=== PATIENT | female | born 1980 | race Caucasian/White ===

== ENCOUNTER 2017-04-29 15:11 | Emergency (ER) | payer MEDICAID, OTHER ==
[~2017-04-29] VITALS: Ht 157.5 cm; Wt 61.5 kg
[2017-04-29 15:15] VITALS: Ht 157.5 cm; Wt 61.5 kg
[2017-04-29] MEDS ORDERED: AMOX1TAB10 PO (16:39)
--- NOTE | 2017-04-29 16:48 | ERD ---
ER Documentation Chief Complaint Date/Time DATE: 04/29/17 TIME: 16:47 Chief Complaint Complains of a dog bite to right thigh HPI This 36-year-old female was bit by a dog that she states was her neighbors after she greeted them at the neighbor's door. She has not an abrasion on her left upper thigh. She has restricted range of motion, weakness, fevers. Her tetanus is not up-to-date. ROS All systems reviewed and are negative except as per history of present illness. Medications Home Meds Active Scripts Amoxicillin/Potassium Clav (Amox-Clav 875-125 mg Tablet) 875-125 mg Tab, 1 TAB PO BID for 7 Days, #14 TAB Prov:ROSAURA PANIAGUA MD 04/29/17 Allergies Allergies: Coded Allergies: No Known Allergy (Unverified , 04/29/17) PMhx/Soc Medical and Surgical Hx: pt denies Medical Hx, pt denies Surgical Hx History of Surgery: No Anesthesia Reaction: No Hx Neurological Disorder: No Hx Respiratory Disorders: No Hx Cardiac Disorders: No Hx Psychiatric Problems: No Hx Miscellaneous Medical Probl: No Hx Alcohol Use: No Hx Substance Use: No Hx Tobacco Use: No Smoking Status: Never smoker Physical Exam Vitals Vital Signs Date Time Temp Pulse Resp B/P Pulse Ox O2 Delivery O2 Flow Rate FiO2 04/29/17 15:15 98.3 86 20 135/65 98 Physical Exam Const: []Alert, [id number] Head: Atraumatic Eyes: Normal Conjunctiva ENT: Normal External Ears, Nose and Mouth. Neck: Full range of motion..~ No meningismus. Resp: Clear to auscultation bilaterally Cardio: Regular rate and rhythm, no murmurs Abd: Soft, non tender, non distended. Normal bowel sounds Skin: No petechiae or rashesThere is approximately 0.5 cm superficial abrasion without active bleeding penetration to the dermis in the left upper thigh. There is no surrounding erythema, bleeding or discharge. Back: No midline or flank tenderness Ext: No cyanosis, or edema Neur: Awake and alert Psych: Normal Mood and Affect Results 24 hrs Current Medications Medications (Trade) Dose Ordered Sig/Be Route PRN Reason Start Time Stop Time Status Last Admin Dose Admin Diphtheria/ Tetanus/Acell Pertussis (Adacel) 0.5 ml ONCE ONCE IM* 04/29/17 17:00 04/29/17 17:01 Procedures/MDM Patient presents with a dog bite left upper thigh which is a small abrasion which does not seem to penetrate to the dermis. There is no evidence of infection, deficits, complications related to her dog bite. Nonetheless wound was dressed and patient was given a tetanus booster she will discharged home with prescription of Augmentin and wound care and a 2 day wound check for redness, fevers, new worsening symptoms. Departure Diagnosis: Primary Impression: Dog bite Encounter type: initial encounter Qualified Code: W54.0XXA - Dog bite, initial encounter Condition: Stable Patient Instructions: Dog Bite Additional Instructions: Recheck in 2 days for fevers, redness, new worsening symptoms ROSAURA PANIAGUA MD Apr 29, 2017 16:48
[2017-04-29] MEDS ORDERED: DIPHTH/TET/ACEL PERTUSS (ADULT) 0.5 ML VIAL IM* ONE (17:00)
== END 2017-04-29 17:53 | disposition home or self-care (01) ==
LOC: FTE 15:11
DX: S71.151A Open bite, right thigh, initial encounter (principal); W54.0XXA Bitten by dog, initial encounter; Y92.9 Unspecified place or not applicable; Z23 Encounter for immunization
CPT/HCPCS: 90471; 90715; Z7502

== ENCOUNTER 2018-01-26 16:14 | Emergency (ER) | END 2018-01-26 18:56 | disposition home or self-care (01) ==